=== PATIENT | male | born 1965 | race Caucasian/White ===

== ENCOUNTER → 2017-05-12 | Outpatient (CLI) | payer OTHER ==
[~2017-05-12] MED LIST: ALLE180T33 PO; FISH5CAP PO; GLUC1CAP9 PO; MULT1TAB10 PO; PANT40TA2 PO; [UNRECOGNIZED DRUG - CODE] PO
[2017-05-12 13:31] LABS: BASO # 0.1 K/mm3 (0.0-0.2); EOS # 0.2 K/mm3 (0.0-0.50); EOS % 2.8 % (0.0-3.0); LARGE UNSTAINED CELL # 0.2 K/mm3 (0.0-0.4); LARGE UNSTAINED CELL % 3.1 % (0.0-4.0); LYMPH # 2.2 K/mm3 (1.5-4.5); LYMPH % 37.8 % (24.0-44.0); MEAN CORPUSCULAR HEMOGLOBIN 29.5 pg (27.0-33.0); MEAN CORPUSCULAR HGB CONC 32.7 g/dl (32.0-36.5); MEAN CORPUSCULAR VOLUME 90.4 fl (80.0-96.0); MONO # 0.4 K/mm3 (0.0-0.8); MONO % 7.3 % (0.0-5.0); NEUTROPHILS # 2.7 K/mm3 (1.8-7.7); NEUTROPHILS % 47.9 % (36.0-66.0); PLATELET COUNT, AUTOMATED 235 k/mm3 (150-450); WHITE BLOOD COUNT 5.7 K/mm3 (4.0-10.0)
[2017-05-12 14:21] LABS: ALBUMIN 3.7 GM/DL (3.2-5.2); ALBUMIN/GLOBULIN RATIO 1.12 (1.00-1.93); BILIRUBIN,TOTAL 0.4 MG/DL (0.2-1.0); CALCIUM LEVEL 8.8 MG/DL (8.5-10.1); CREATININE FOR GFR 1.37 MG/DL (0.70-1.30); FREE T4 0.87 NG/DL (0.76-1.46); GLOMERULAR FILTRATION RATE 58.3 (>56); POTASSIUM SERUM 4.7 MEQ/L (3.5-5.1)
[2017-05-14 14:11] LABS: PSA TOTAL 0.9 ng/mL (0.0-4.0)
== END ==
LOC: M SMT 09:15
PROVIDERS: ATTEND Physician Assistant
DX: R35.1 Nocturia (principal); K21.9 Gastro-esophageal reflux disease without esophagitis; Z13.1 Encounter for screening for diabetes mellitus; Z13.220 Encounter for screening for lipoid disorders

== ENCOUNTER → 2017-05-22 | Outpatient (CLI) | payer OTHER ==
--- NOTE | 2017-05-27 10:08 | SLEEPHOME ---
DATE OF PROCEDURE: 05/22/2017 ORDERED BY: John Gibson. INTERPRETATION: Diagnostic home sleep testing was performed due to concern for the obstructive sleep apnea syndrome in this patient with a history of excessive somnolence. For testing, a NOX-T3 respiratory monitoring device was used. Continuous record was made of pulse, oxygen saturation, air flow, chest and abdominal strain and body position. 5 hours and 14 minutes of data were reviewed. Of these, 3 hours and 32 minutes were marked as time in bed. During the interval marked time in bed, there were 224 respiratory events identified of 10 seconds in duration or greater for a respiratory event index of 63.1. The events were more frequently central, 106 central events, 262 total events. Baseline pulse rate was 66 beats per minute. Pulse rate ranged 53-96. Baseline saturation was 88%. Lowest oxygen desaturation 77%. Testing was performed in both the supine and non-supine positions. IMPRESSION: Abnormal home sleep testing with repetitive respiratory events and oxygen desaturations to 77% with a respiratory event index of 63.1 is consistent with the obstructive sleep apnea syndrome. This condition is considered complex due to the frequency of central apneas. RECOMMENDATION: The patient should be referred for formal sleep evaluation and in laboratory pressure titration. Given the frequency of central apneas, the use of a bilevel device in back up rate is likely necessary.
== END ==
LOC: M SLEEP HO 15:38
PROVIDERS: ATTEND Physician Assistant
DX: R06.83 Snoring (principal)

== ENCOUNTER 2017-06-19 07:53 | Outpatient (CLI) | payer OTHER ==
[~2017-06-19] VITALS: Ht 170.2 cm; Wt 104.3 kg
[~2017-06-19 07:53] MED LIST changes: -ALLE180T33 PO; +PROPOFOL 500 MG/50 ML VIAL As Ordered ONE
[2017-06-19] MEDS ORDERED: NS 1,000 ML IV ONE (08:15)
[2017-06-19] MEDS ORDERED: ALLE180T33 PO (08:22)
[2017-06-19] MEDS ORDERED: MIDAZOLAM INJ 2 MG/2 ML VIAL (J2250) As Ordered ONE (09:12)
--- NOTE | 2017-06-19 09:23 | ROOR ---
Patient Name: Fredi Turner Procedure Date: 06/19/2017 9:05 AM Date of : 1965 Age: 51 Room: [facility] Gender: Male Note Status: Finalized Procedure: Upper GI endoscopy Indications: Suspected gastro-esophageal reflux disease Providers: Jose Guadalupe Moya Jr, MD Referring MD: Libia KERN DO Requesting Provider: Medicines: Propofol per Anesthesia Complications: No immediate complications. Procedure: Pre-Anesthesia Assessment: - Prior to the procedure, a History and Physical was performed, and patient medications and allergies were reviewed. The patient is competent. The risks and benefits of the procedure and the sedation options and risks were discussed with the patient. All questions were answered and informed consent was obtained. Patient identification and proposed procedure were verified by the physician and the nurse in the pre-procedure area and in the procedure room. Mental Status Examination: alert and oriented. Airway Examination: normal oropharyngeal airway and neck mobility. Respiratory Examination: clear to auscultation. CV Examination: normal. ASA Grade Assessment: II - A patient with mild systemic disease. After reviewing the risks and benefits, the patient was deemed in satisfactory condition to undergo the procedure. The anesthesia plan was to use moderate sedation / analgesia (conscious sedation). Immediately prior to administration of medications, the patient was re-assessed for adequacy to receive sedatives. The heart rate, respiratory rate, oxygen saturations, blood pressure, adequacy of pulmonary ventilation, and response to care were monitored throughout the procedure. The physical status of the patient was re-assessed after the procedure. The Endoscope was introduced through the mouth, and advanced to the second part of duodenum. The patient tolerated the procedure well. The upper GI endoscopy was accomplished without difficulty. Findings: The upper third of the esophagus, middle third of the esophagus and lower third of the esophagus were normal. One mild benign-appearing, intrinsic stenosis was found at the gastroesophageal junction. Diffuse mild inflammation characterized by congestion (edema), erythema, friability and granularity was found in the entire examined stomach. Biopsies were taken with a cold forceps for histology. Diffuse mild inflammation characterized by congestion (edema), erythema, friability and granularity was found in the gastric antrum. Biopsies were taken with a cold forceps for histology. The duodenal bulb, first portion of the duodenum and second portion of the duodenum were normal. A small hiatal hernia was present. Impression: - Normal upper third of esophagus, middle third of esophagus and lower third of esophagus. - Benign-appearing esophageal stenosis. - Gastritis. Biopsied. - Gastritis. Biopsied. - Normal duodenal bulb, first portion of the duodenum and second portion of the duodenum. - Small hiatal hernia. Recommendation: - Discharge patient to home (ambulatory). - Return to my office in 3 weeks. Jose Guadalupe Moya MD Jose Guadalupe Moya Jr, MD 06/19/2017 9:23:06 AM This report has been signed electronically. Number of Addenda: 0 Note Initiated On: 06/19/2017 9:05 AM Estimated Blood Loss: Estimated blood loss: none.
--- NOTE | 2017-06-19 09:37 | ROOR ---
Patient Name: Fredi Turner Procedure Date: 06/19/2017 9:05 AM Date of : 1965 Age: 51 Room: [facility] Gender: Male Note Status: Finalized Procedure: Colonoscopy Indications: Screening for colorectal malignant neoplasm Providers: Jose Guadalupe Moya Jr, MD Referring MD: Libia KERN DO Requesting Provider: Medicines: Propofol per Anesthesia Complications: No immediate complications. Procedure: Pre-Anesthesia Assessment: - Prior to the procedure, a History and Physical was performed, and patient medications and allergies were reviewed. The patient is competent. The risks and benefits of the procedure and the sedation options and risks were discussed with the patient. All questions were answered and informed consent was obtained. Patient identification and proposed procedure were verified by the physician and the nurse in the pre-procedure area and in the procedure room. Mental Status Examination: alert and oriented. Airway Examination: normal oropharyngeal airway and neck mobility. Respiratory Examination: clear to auscultation. CV Examination: normal. ASA Grade Assessment: II - A patient with mild systemic disease. After reviewing the risks and benefits, the patient was deemed in satisfactory condition to undergo the procedure. The anesthesia plan was to use moderate sedation / analgesia (conscious sedation). Immediately prior to administration of medications, the patient was re-assessed for adequacy to receive sedatives. The heart rate, respiratory rate, oxygen saturations, blood pressure, adequacy of pulmonary ventilation, and response to care were monitored throughout the procedure. The physical status of the patient was re-assessed after the procedure. The Colonoscope was introduced through the anus and advanced to the cecum, identified by appendiceal orifice and ileocecal valve. The colonoscopy was performed without difficulty. The patient tolerated the procedure well. The quality of the bowel preparation was adequate and good. Findings: The perianal and digital rectal examinations were normal. Pertinent negatives include normal sphincter tone, no palpable rectal lesions and no anal lesion or abnormality was detected. A few small-mouthed diverticula were found in the sigmoid colon. Two polyps were found in the rectum and ascending colon. The polyps were small in size. These polyps were removed with a hot snare. Resection and retrieval were complete. The recto-sigmoid colon, sigmoid colon, descending colon, transverse colon, cecum, appendiceal orifice and ileocecal valve appeared normal. Impression: - Diverticulosis in the sigmoid colon. - Two small polyps in the rectum and in the ascending colon, removed with a hot snare. Resected and retrieved. - The recto-sigmoid colon, sigmoid colon, descending colon, transverse colon, cecum, appendiceal orifice and ileocecal valve are normal. Recommendation: - Discharge patient to home (ambulatory). - Repeat colonoscopy in 3 - 5 years for surveillance based on pathology results. Jose Guadalupe Moya MD Jose Guadalupe Myoa Jr, MD 06/19/2017 9:37:09 AM This report has been signed electronically. Number of Addenda: 0 Note Initiated On: 06/19/2017 9:05 AM Estimated Blood Loss: Estimated blood loss: none.
[2017-06-19 09:50] VITALS: BP 137/82
[2017-06-19] MEDS ORDERED: LIDOCAINE 2% INJ 100 MG/5 ML SDV (FOR ANES.) As Ordered ONE (09:55)
== END 2017-06-19 10:20 | disposition home or self-care (01) ==
LOC: M OPP 07:53
PROVIDERS: ATTEND Surgery
DX: Z12.11 Encounter for screening for malignant neoplasm of colon (principal); K57.30 Diverticulosis of large intestine without perforation or abscess without bleeding; K62.1 Rectal polyp; D12.2 Benign neoplasm of ascending colon; K22.2 Esophageal obstruction; K29.70 Gastritis, unspecified, without bleeding; K44.9 Diaphragmatic hernia without obstruction or gangrene; K58.9 Irritable bowel syndrome, unspecified; K21.9 Gastro-esophageal reflux disease without esophagitis; G47.30 Sleep apnea, unspecified; Z87.891 Personal history of nicotine dependence; F12.20 Cannabis dependence, uncomplicated; Z79.899 Other long term (current) drug therapy
CPT/HCPCS: 43239; 45385; 88305; J2250

== ENCOUNTER → 2017-07-10 | Outpatient (CLI) | payer OTHER ==
[~2017-07-10] MED LIST changes: +ALLE180T33 PO; -PROPOFOL 500 MG/50 ML VIAL As Ordered ONE
[2017-07-10 11:51] LABS: ANION GAP 8 MEQ/L (8-16); BLOOD UREA NITROGEN 17 MG/DL (7-18); CALCIUM LEVEL 8.3 MG/DL (8.5-10.1); CARBON DIOXIDE LEVEL 28 MEQ/L (21-32); CHLORIDE LEVEL 108 MEQ/L (98-107); CREATININE FOR GFR 1.19 MG/DL (0.70-1.30); GLOMERULAR FILTRATION RATE > 60.0 (>56); GLUCOSE, FASTING 97 MG/DL (70-105); POTASSIUM SERUM 4.6 MEQ/L (3.5-5.1); SODIUM LEVEL 144 MEQ/L (136-145)
== END ==
LOC: M SMT 08:01
PROVIDERS: ATTEND Physician Assistant
DX: N18.3 Chronic kidney disease, stage 3 (moderate) (principal)

== ENCOUNTER → 2018-05-15 | Outpatient (CLI) | payer OTHER | LOC: M SLEEP 19:33 | DX: G47.33 Obstructive sleep apnea (adult) (pediatric) (principal) ==

== ENCOUNTER → 2021-08-11 | Outpatient (CLI) | payer OTHER ==
[~2021-08-11] MED LIST changes: -PANT40TA2 PO; +PANT40TA29 PO
== END ==
LOC: M LABSMTC 09:11
PROVIDERS: ATTEND Anesthesiology
DX: Z20.822 Contact with and (suspected) exposure to COVID-19 (principal)

== ENCOUNTER 2021-08-16 07:26 | Day surgery (SDC) | payer OTHER ==
[~2021-08-16] VITALS: Ht 170.2 cm; Wt 89.8 kg
[~2021-08-16 07:26] MED LIST changes: +LIDOCAINE 2% 100MG/5ML SDV (FOR ANES.) As Ordered ONE; +NS 1,000 ML IV ONE; +propofoL 200 MG/20 ML VIAL As Ordered ONE
--- NOTE | 2021-08-16 09:08 | ROOR ---
Patient Name: Fredi Turner Procedure Date: 08/16/2021 8:42 AM Date of : 1965 Age: 55 Room: [facility] Gender: Male Note Status: Finalized Procedure: Colonoscopy Indications: High risk colon cancer surveillance: Personal history of colonic polyps Providers: Jose Guadalupe Moya Jr, MD Referring MD: Libia KERN DO Requesting Provider: Medicines: Propofol per Anesthesia Complications: No immediate complications. Procedure: Pre-Anesthesia Assessment: - Prior to the procedure, a History and Physical was performed, and patient medications and allergies were reviewed. The patient is competent. The risks and benefits of the procedure and the sedation options and risks were discussed with the patient. All questions were answered and informed consent was obtained. Patient identification and proposed procedure were verified by the physician and the nurse in the pre-procedure area and in the procedure room. Mental Status Examination: alert and oriented. Airway Examination: normal oropharyngeal airway and neck mobility. Respiratory Examination: clear to auscultation. CV Examination: normal. ASA Grade Assessment: II - A patient with mild systemic disease. After reviewing the risks and benefits, the patient was deemed in satisfactory condition to undergo the procedure. The anesthesia plan was to use moderate sedation / analgesia (conscious sedation). Immediately prior to administration of medications, the patient was re-assessed for adequacy to receive sedatives. The heart rate, respiratory rate, oxygen saturations, blood pressure, adequacy of pulmonary ventilation, and response to care were monitored throughout the procedure. The physical status of the patient was re-assessed after the procedure. The Colonoscope was introduced through the anus and advanced to the cecum, identified by appendiceal orifice and ileocecal valve. The patient tolerated the procedure well. The quality of the bowel preparation was adequate. Findings: The rectum, recto-sigmoid colon, descending colon, transverse colon, cecum, appendiceal orifice and ileocecal valve appeared normal. Multiple small-mouthed diverticula were found in the sigmoid colon. A small polyp was found in the ascending colon. The polyp was removed with a cold snare. Resection and retrieval were complete. Impression: - The rectum, recto-sigmoid colon, descending colon, transverse colon, cecum, appendiceal orifice and ileocecal valve are normal. - Diverticulosis in the sigmoid colon. - One small polyp in the ascending colon, removed with a cold snare. Resected and retrieved. Recommendation: - Discharge patient to home (ambulatory). - Repeat colonoscopy in 5 years for surveillance. Procedure Code(s): --- Professional --- 24177, Colonoscopy, flexible; with removal of tumor(s), polyp(s), or other lesion(s) by snare technique Diagnosis Code(s): --- Professional --- Z86.010, Personal history of colonic polyps K63.5, Polyp of colon K57.30, Diverticulosis of large intestine without perforation or abscess without bleeding CPT copyright 2019 [employer]. All rights reserved. The codes documented in this report are preliminary and upon [employer] professional review may be revised to meet current compliance requirements. Jose Guadalupe Moya MD Jose Guadalupe Moya Jr, MD 08/16/2021 9:08:40 AM Electronically signed by Jose Guadalupe Moya Jr, MD Number of Addenda: 0 Note Initiated On: 08/16/2021 8:42 AM Estimated Blood Loss: Estimated blood loss: none.
[2021-08-16 09:25] VITALS: BP 122/86
== END 2021-08-16 09:30 | disposition home or self-care (01) ==
LOC: M OPP 07:26
PROVIDERS: ATTEND Surgery
DX: Z12.11 Encounter for screening for malignant neoplasm of colon (principal); Z86.010 Personal history of colon polyps; K63.5 Polyp of colon; K57.30 Diverticulosis of large intestine without perforation or abscess without bleeding; Z87.891 Personal history of nicotine dependence

== ENCOUNTER → 2021-08-27 | Outpatient (REF) | payer OTHER ==
[~2021-08-27] MED LIST changes: -LIDOCAINE 2% 100MG/5ML SDV (FOR ANES.) As Ordered ONE; -NS 1,000 ML IV ONE; -propofoL 200 MG/20 ML VIAL As Ordered ONE
== END ==
LOC: M LAB REF 09:13
PROVIDERS: ATTEND Surgery
DX: D17.1 Benign lipomatous neoplasm of skin and subcutaneous tissue of trunk (principal)

== ENCOUNTER → 2024-09-07 | Outpatient (CLI) | payer OTHER | LOC: M SOG 07:32 | PROVIDERS: ATTEND Physician Assistant | DX: M25.571 Pain in right ankle and joints of right foot (principal) ==

== ENCOUNTER → 2024-11-15 | Outpatient (CLI) | payer OTHER | LOC: M RAD 07:35 | PROVIDERS: ATTEND Physician Assistant | DX: M25.571 Pain in right ankle and joints of right foot (principal); M19.071 Primary osteoarthritis, right ankle and foot; M85.671 Other cyst of bone, right ankle and foot ==

== ENCOUNTER → 2025-08-24 | Outpatient (CLI) | payer OTHER ==
[2025-08-24 10:06] LABS: ALT/SGPT 22.0 U/L (7.0-40); AST/SGOT 18.0 U/L (<34); CALCIUM LEVEL 9.2 MG/DL (8.5-10.1); CARBON DIOXIDE LEVEL 28.0 MMOL/L (20-31); CHLORIDE LEVEL 105.0 MMOL/L (98-107); CHOLESTEROL LEVEL 223.0 MG/DL (<200); CHOLESTEROL RISK RATIO 4.72 (<5); CREATININE FOR GFR 1.02 MG/DL (0.70-1.30); GLOMERULAR FILTRATION RATE 84.7 (>56); LDL CHOLESTEROL 144.2 MG/DL (<100); NON-HDL-C 175.8 MG/DL; POTASSIUM SERUM 4.5 MMOL/L (3.5-5.1); SODIUM LEVEL 144.0 MMOL/L (136-145); TRIGLYCERIDES LEVEL 158.0 MG/DL (<150)
== END ==
LOC: M LAB 08:17
PROVIDERS: ATTEND Physician Assistant
DX: E78.00 Pure hypercholesterolemia, unspecified (principal)